=== PATIENT | male | born 1955 | race Caucasian/White ===

== ENCOUNTER → 2018-05-30 | Outpatient (CLI) | payer SELFPAY ==
[~2018-05-30] MED LIST: ACET-422 PO; ATEN25TA PO; ESZO1TAB8 PO; IOHEXOL 180 MG/ML 10 ML VIAL. IT ONE; LIDOCAINE 1% Multi-Dose 20 ML VIAL. ID ONE; METH-37 PO; OXYM5TAB22 PO
--- NOTE | 2018-05-30 18:47 | KCIC ---
Lumbar myelogram 05/30/2018 Clinical History: Low back pain with bilateral leg pain, right greater than left. Technique: After the risks and benefits of the procedure were explained to the patient, written informed consent was obtained. The patient was placed prone on the fluoroscopy table and the lower back was prepped and draped in sterile fashion. 1% lidocaine was used as a local anesthetic. Under fluoroscopic guidance, the thecal sac of the lumbar cistern was punctured at the L2-L3 level using 25-gauge Deacon needle. After confirming clear CSF return, 17 cc of Omnipaque 180 were injected through the needle into the thecal sac of the lumbar cistern under fluoroscopic guidance. Following this the needle was removed and hemostasis achieved at the puncture site. A sterile bandage was placed on the skin puncture site. AP, bilateral oblique, lateral and standing neutral, flexion and extension lateral digital radiographs of the lumbar spine were obtained. Following this the patient was taken to CT where a CT scan of the lumbar spine was performed. This will be reported separately. Following the examinations the patient was sent home with an instruction sheet. The patient tolerated the procedure well and there were no immediate complications. The total fluoroscopic time for this procedure was 70 seconds. 9 digital spot radiographs of the lumbar spine were obtained. Findings: Comparison study is dated 06/15/2013. Minimal S-shaped curvature of the thoracolumbar spine is seen. The patient is post disc replacement at L5-S1. Degenerative changes consisting of vertebral endplate sclerosis and minimal to mild anterior and posterior vertebral body osteophyte formation are seen involving the L3-4 and L4-5 disc spaces. Disc space narrowing is seen at L3-4. Mild anterior extradural defects are seen upon the contrast column at these levels. There is no evidence of complete block at any level involving the lumbar spine. The alignment of the lumbar vertebrae is maintained on the flexion and extension radiographs. Mild atherosclerotic calcification of the abdominal aorta is seen. Impression: 1. Post disc replacement at L5-S1. 2. Degenerative changes are seen involving the mid and lower lumbar spine as outlined above. No complete block of contrast is seen at any level. Electronically signed by: Santana Waddell MD (05/30/2018 6:44 PM) [email or web address]
--- NOTE | 2018-05-30 18:57 | KCIC ---
CT lumbar myelogram 05/30/2018 Clinical History: Low back pain with bilateral leg pain, right greater than left. History of disc replacement. Technique: This study was performed after a lumbar myelogram, contiguous, 0.6 mm axial sections were obtained through the lumbar spine. 3 mm sagittal, coronal and axial reconstructed images were obtained. One or more of the following individualized dose reduction techniques were utilized for this study: 1. Automated exposure control. 2. Adjustment of the mA and/or kV according to patient size. 3. Use of iterative reconstruction technique. Findings: Comparison is made to the patient's lumbar myelogram performed earlier today. Additional comparison is made to the patient's previous CT lumbar myelogram dated 06/15/2013. The sagittal and coronal reconstructed images demonstrate very mild S-shaped curvature of the thoracolumbar spine. The patient is post disc replacement at L5-S1. Degenerative changes consisting of vertebral endplate sclerosis and minimal to mild anterior and posterior vertebral body osteophyte formation are seen involving the L3-4 and L4-5 disc spaces. Loss of height of the L3-4 disc is seen. Vacuum disc phenomenon is seen involving the L3-4 disc. Mild atherosclerotic calcification of the abdominal aorta and its branches is noted. The L1-2 and L2-3 disc spaces are within normal limits. At the L3-4 disc space there is a mild to moderate generalized disc bulge. This is eccentric to the right. Degenerative changes are seen involving the facet joints bilaterally. There is mild ligamentum flavum hypertrophy bilaterally. These findings do not result in significant central spinal canal stenosis. Mild right neural foraminal stenosis is seen. The left neural foramen is patent. At the L4-5 disc space there is a moderate generalized disc bulge. This is eccentric to the left. Degenerative changes are seen involving the facet joints bilaterally. There is mild ligamentum flavum hypertrophy bilaterally. These findings do not result in significant central spinal canal stenosis. Mild left neural foraminal stenosis is seen. The right neural foramen is patent. The L5-S1 level beam hardening artifact from the patient's disc replacement degrades the axial images. Degenerative changes are seen involving the facet joints bilaterally. Left lateral posterior vertebral body osteophyte formation is seen which measures 6 mm in AP diameter. This contributes to moderate right neural foraminal stenosis. The left neural foramen is patent. No significant central spinal canal stenosis is seen. The degenerative changes at L3-4 and L4-5 have progressed since the previous study. IMPRESSION: 1. Post disc replacement at L5-S1. 2. The changes of degenerative disc disease are seen involving the mid and lower lumbar spine. These findings do not result in significant central spinal canal stenosis at any level. Mild right neural foraminal stenosis is seen at L3-4. Mild left neural foraminal stenosis is seen at L4-5. Moderate right neural foraminal stenosis is seen at L5-S1. Electronically signed by: Santana Waddell MD (05/30/2018 6:54 PM) [email or web address]
== END | disposition home or self-care (01) ==
LOC: KCIC 10:38
PROVIDERS: ATTEND Family Medicine
DX: M51.36 Other intervertebral disc degeneration, lumbar region (principal); M48.07 Spinal stenosis, lumbosacral region; M47.816 Spondylosis without myelopathy or radiculopathy, lumbar region; M43.8X5 Other specified deforming dorsopathies, thoracolumbar region; M25.78 Osteophyte, vertebrae; I70.0 Atherosclerosis of aorta
CPT/HCPCS: 72132; 72265; Q9965

== ENCOUNTER → 2019-07-17 | Outpatient (CLI) | payer MEDICARE ==
[~2019-07-17] MED LIST changes: -IOHEXOL 180 MG/ML 10 ML VIAL. IT ONE; -LIDOCAINE 1% Multi-Dose 20 ML VIAL. ID ONE
--- NOTE | 2019-07-17 14:27 | RAD ---
CT scan of the lumbar spine without contrast 07/17/2019 CLINICAL HISTORY: Severe low back pain. History of lumbar spine surgery. TECHNIQUE: Unenhanced contiguous, 0.625 mm axial sections were obtained through the lumbar spine. 3 mm reconstructed sagittal, axial and coronal images were obtained. One or more of the following individualized dose reduction techniques were utilized for this study: 1. Automated exposure control. 2. Adjustment of the mA and/or kV according to patient size. 3. Use of iterative reconstruction technique. FINDINGS: Comparison is made to a CT lumbar myelogram dated 05/30/2018. Sagittal and coronal reconstructed images demonstrate very mild S-shaped curvature of the thoracolumbar spine. The patient is post disc replacement, laminectomy and posterolateral fusion using pedicle screws and stabilizing rods at L5-S1. The laminectomy and fusion is new since the previous study. Degenerative changes consisting of vertebral endplate sclerosis and minimal to mild anterior and posterior vertebral body osteophyte formation are seen involving the remaining lumbar disc spaces. Disc space narrowing is seen at L3-4. Atherosclerotic calcification of the abdominal aorta is noted. The L1-2 and L2-3 disc spaces are within normal limits. At the L3-4 disc space there is a mild to moderate generalized disc bulge. Degenerative changes are seen involving the facet joints bilaterally. There is mild ligamentum flavum hypertrophy bilaterally. These findings when combined do not result in significant central spinal canal stenosis. Mild right neural foraminal stenosis is seen. The left neural foramen is patent. At the L4-5 disc space there is a mild to moderate generalized disc bulge. This is eccentric to the left. Degenerative changes are seen involving the facet joints bilaterally. There is mild to moderate ligamentum flavum hypertrophy, left greater than right. These findings when combined result in mild to moderate left greater than right central spinal canal stenosis. No neural foraminal stenosis is seen. Evaluation of the L5-S1 level is limited due to significant beam hardening artifact related to the patient's fusion hardware. Degenerative changes are seen involving the facet joints bilaterally. No definite area of significant central spinal canal or neural foraminal stenosis is seen. IMPRESSION: 1. Postsurgical changes are seen at L5-S1 as discussed above. 2. The changes of degenerative disc disease are seen involving the lumbar spine. These findings result in mild to moderate left greater than right central spinal canal stenosis at L4-5. Mild right neural foraminal stenosis is seen at L3-4. Electronically signed by: Santana Waddell MD (07/17/2019 2:24 PM) [id number]
== END | disposition home or self-care (01) ==
LOC: CT 10:57
PROVIDERS: ATTEND Family Medicine
DX: M51.36 Other intervertebral disc degeneration, lumbar region (principal); M48.061 Spinal stenosis, lumbar region without neurogenic claudication; M47.817 Spondylosis without myelopathy or radiculopathy, lumbosacral region; I70.0 Atherosclerosis of aorta; M25.78 Osteophyte, vertebrae; M89.38 Hypertrophy of bone, other site; G89.18 Other acute postprocedural pain
CPT/HCPCS: 72131

== ENCOUNTER → 2020-06-18 | Outpatient (CLI) | payer MEDICARE ==
--- NOTE | 2020-06-18 16:17 | KCIC ---
CT study lumbar spine without contrast Clinical indications: Low back pain. Previous surgery. Right-sided sciatica. COMPARISON: July 17, 2019. TECHNIQUE: Noncontrast helical CT scanning of the cervical spine was performed. Multiplanar 2-D recon structions were generated. PQRS compliance Statement One or more of the following individualized dose reduction techniques were utilized for this study: 1. Automated exposure control 2. Adjustment of the mA and/or kV according to patient size 3. Use of iterative reconstruction technique FINDINGS: Bilateral transpedicular screws are seen at L5 and S1 connected by 2 metallic vertical stab ilizer bars. Interbody disc space metallic fusion cage devices are seen within the L5-S1 disc space. Due to streak artifact from the metallic surgical hardware, evaluation of the spinal canal at L5-S1 i s obscured. No compression fracture or discitis or lytic process is seen. No spondylolysis is seen. H owever, the right L5-S1 facet has been surgically resected. Soft tissue thickening is seen within the surgical defect. No mass effect upon the spinal canal seen at this level. There is a partial laminec bashir defect of the left side of L5. The spinous processes are intact. Minimal levoscoliosis is seen w ithout significant rotation and may be due to asymmetric degenerative disc space narrowing of the rig ht side of the L3-4 disc space. T12-L1: No focal disc protrusion or spinal canal stenosis or neural foraminal narrowing is seen. L1-L2: No focal disc protrusion or spinal canal stenosis or neural foraminal narrowing is seen. L2-3: No focal disc protrusion or spinal canal stenosis or neural foraminal narrowing is seen. L3-L4: There is moderate to severe degenerative disc space narrowing evident. There is mild degenerat wilfredo endplate spurring and diffuse disc protrusion which extends into the inferior aspect of the right neural foramen. There is mild narrowing of the right neural foramen. There is minimal grade 1 domingo listhesis at this level. There is mild facet arthropathy and ligamentum flavum hypertrophy. These fin dings combine to form a mild spinal canal stenosis. L4-L5: Minimal grade 1 anterolisthesis is seen. There is mild degenerative endplate spurring and mild diffuse disc protrusion which extends into the inferior aspect of the neural foramina bilaterally. T here is mild narrowing of the left neural foramen. No significant narrowing of the right neural estiven en is seen. There is mild facet arthropathy and moderate ligamentum flavum hypertrophy more so on the left side. These findings combine to form a mild to moderate spinal canal stenosis more prominent on the left side. L5-S1: L5-S1 is obscured by the artifact. No significant narrowing of the left neural foramen. There is narrowing of the right neural foramen related to soft tissue thickening extending from the facet a therectomy defect. IMPRESSION: L5-S1 fusion with right-sided facet arthrectomy at this level. Soft tissue thickening see n within the defect which extends to the right neural foramen. This was seen previously. Alignment is unchanged. No compression fracture or discitis or lytic process is seen. See discussion above for each level. Overall, no significant change from July 17, 2019. Electronically signed by: Dav Thao MD (06/18/2020 4:15 PM) [id number]
== END ==
LOC: KCIC CT 14:17
PROVIDERS: ATTEND Family Medicine
DX: M47.816 Spondylosis without myelopathy or radiculopathy, lumbar region (principal); M43.16 Spondylolisthesis, lumbar region; M48.061 Spinal stenosis, lumbar region without neurogenic claudication
CPT/HCPCS: 72131

== ENCOUNTER → 2020-06-26 | Outpatient (CLI) | payer MEDICARE ==
--- NOTE | 2020-06-26 16:03 | KCIC ---
STUDY: MRI of the right knee without contrast INDICATION: Right knee meniscus tear. Chronic pain. COMPARISON: None. TECHNIQUE: Multiplanar MR imaging of the right knee performed without the use of intravenous or intra -articular contrast. FINDINGS: Menisci: Free edge and partial-thickness radial tear of the medial meniscus along the posterior body segment into the posterior horn on a background of myxoid degeneration. Intact lateral meniscus. Cruciate ligaments: Heterogeneous PCL could be degenerative or from a chronic partial thickness tear. The ACL is intact. Collateral ligaments: No acute injury to the medial or lateral collateral ligaments. Tendons: Intact. Cartilage: Patellofemoral: Scattered partial thickness/superficial chondrosis. Lateral compartment: Chondrosis potentially with delamination at the weightbearing lateral tibial lance teau, image 11 series 8. Medial compartment: Partial thickness weightbearing and posterior nonweightbearing chondrosis of the medial femoral condyle. No high-grade or full-thickness chondrosis of the medial tibial plateau. Bones: Small joint line osteophytes. No acute fracture or focally aggressive marrow signal abnormalit y. Miscellaneous: Small amount of knee joint fluid. Small Boyd's cyst. Thin fluid signal deep to the di stal half of the tibial collateral ligament could indicate mild bursitis. Localized fatty infiltratio n involving a portion of the medial gastrocnemius. IMPRESSION: 1. Free edge and partial-thickness radial tearing of the medial meniscus along the posterior body to posterior horn. The lateral meniscus is intact. 2. Either degenerative heterogeneity of the PCL or the sequela of a chronic partial thickness tear. The ACL is intact. 3. Tricompartmental chondrosis most notable along the weightbearing aspect of the medial femoral con dyle and an area of delamination at the weightbearing lateral tibial plateau. 4. Small amount of knee joint fluid and a small Boyd's cyst. Mild TCL bursitis. Electronically signed by: FREEMAN PANDA MD (06/26/2020 4:00 PM) [id number]
== END ==
LOC: KCIC MRI 14:33
PROVIDERS: ATTEND Orthopaedic Surgery
DX: S83.206A Unspecified tear of unspecified meniscus, current injury, right knee, initial encounter (principal); M25.761 Osteophyte, right knee; M71.21 Synovial cyst of popliteal space [Baker], right knee; X58.XXXA Exposure to other specified factors, initial encounter; Y93.89 Activity, other specified; Y92.89 Other specified places as the place of occurrence of the external cause; Y99.8 Other external cause status
CPT/HCPCS: 73721

== ENCOUNTER → 2021-06-22 | Outpatient (CLI) | payer MEDICARE ==
--- NOTE | 2021-06-23 07:48 | KCIC ---
CT lumbar spine without contrast PQRS statement: CT scans at this facility use dose reduction including either automated exposure cont rol, iterative reconstructions, and /or weight based radiation dosing via mA and kV modification when appropriate to reduce radiation dose to as low as reasonably achievable. HISTORY: Lumbar ago with right-sided sciatica. Low back pain. History of lumbar spinal fusion surgery . COMPARISON: CT lumbar spine June 18, 2020 FINDINGS: Gradual levoconvex lumbar scoliosis. Lumbar vertebral body height and alignment intact. No fracture. No spondylolysis defect. Postoperative change L5 laminotomy, right L5-S1 foraminotomy, L5-S 1 discectomy and fusion with interbody spacer with surrounding osseous fusion, anterior plate and scr ews, and posterior instrumentation with pedicle screws and rods. The L5-S1 discectomy and interbody s pacer and anterior plate and screws with osseous fusion is new from prior exam when previously there was a interbody disc replacement, which has since removed. No bone lysis around the hardware to sugge st loosening. Calcified plaques aorta and iliac arteries. Disc disease described below. L1-L2: Unremarkable. L2-L3: Probable shallow disc bulge, bony spinal canal grossly patent, stable. L3-L4: Marked disc height loss eccentric, disc bulge, right eccentric lateral bony sclerosis and disc osteophyte, facet hypertrophy and spurring. Probable moderate right neural foraminal stenosis. Mild left neural foraminal stenosis. There could be mild narrowing of the spinal canal. The spinal canal a nd right neural foraminal narrowing may be slightly progressed. L4-L5: Facet hypertrophy and spurring, there is asymmetric left greater than right ligament flavum th ickening, asymmetry due to an underlying ill-defined left facet synovial cyst not excluded, disc bulg e with probable superimposed central disc herniation, findings likely contribute moderate to severe s luis canal stenosis as well as narrowing of left lateral recess, grossly stable. Mild bilateral neur al foraminal stenoses are stable. L5-S1: Indistinct soft tissue density at the right foraminotomy posteriorly encircling the exiting ri ght L5 nerve is indeterminate, presumably postsurgical fibrosis. Bony neural foramina otherwise gross ly patent. Bony spinal canal patent. IMPRESSION: Post surgical changes of the lower lumbar spine at L5-S1 as described above. Lumbar disc disease and facet arthrosis with spinal canal and neural foraminal stenoses at L3-L4 and L4-L5 as letty cribed above. Electronically signed by: Broderick Simmons MD (06/22/2021 5:21 PM) [facility]
== END ==
LOC: KCIC CT 14:25
PROVIDERS: ATTEND Family Medicine
DX: M51.36 Other intervertebral disc degeneration, lumbar region (principal); M51.26 Other intervertebral disc displacement, lumbar region; M48.061 Spinal stenosis, lumbar region without neurogenic claudication; M47.896 Other spondylosis, lumbar region; M41.86 Other forms of scoliosis, lumbar region; M46.06 Spinal enthesopathy, lumbar region; M54.41 Lumbago with sciatica, right side; Z98.1 Arthrodesis status
CPT/HCPCS: 72131